=== PATIENT | female | born 1935 | race Caucasian/White ===

== ENCOUNTER 2020-01-21 08:09 | Emergency (ER) | payer MEDICARE, MEDICAID ==
[~2020-01-21 08:09] MED LIST: ADLT ASA LOW81 MG PO; AMLODIPINE10 MG PO; AMOX/K CLAV500 MG PO; CIPROFLOXACIN250 MG PO; METOPROL TAR25 MG PO; METOPROL TAR50 MG PO; METOPROLOL TART50 MG PO; MOBIC7.5 MG/5 M PO; NITROSTAT0.4 MG SL; PLAVIX75 MG PO; PRAVASTATIN20 MG PO; XALATAN0.005 %; XALATAN0.005 % OU
[2020-01-21 09:33] LABS: HEMATOCRIT 31.5 % (37.0-47.0); HEMOGLOBIN 10.2 g/dl (12.0-16.0); IMMATURE GRANULOCYTES 0.5 % (0.0-5.0); MEAN CELL VOLUME 87.5 fL CALC (80.0-100.0); MEAN CORPUSCULAR HGB 28.3 pG CALC (26.0-32.0); MEAN CORPUSCULAR HGB CONC 32.4 g/dL CAL (32.0-36.0); NEUT# 3.88 thou/uL (2.00-7.15); RED BLOOD COUNT 3.6 mill/uL (4.20-5.60); RED CELL DISTRI WIDTH 13.3 % (11.5-15.5)
[2020-01-21 10:04] LABS: INTERNATIONAL NORMALIZED RATIO 0.9 RATIO (0.7-1.3); PROTHROMBIN TIME 9.8 SECONDS (9.0-12.5)
[2020-01-21 10:23] LABS: ALBUMIN 3.9 g/dL (3.2-5.0); BILIRUBIN, TOTAL 0.4 mg/dL (0.0-1.4); CREATININE 1.4 mg/dL (0.5-1.0); POTASSIUM 3.8 mmol/l (3.5-5.1); TOTAL PROTEIN 7.9 g/dL (6.3-8.2)
[2020-01-21 12:20] VITALS: BP 164/72
== END 2020-01-21 12:20 | disposition home or self-care (01) ==
LOC: ED 08:09
PROVIDERS: Family Medicine
DX: N93.9 Abnormal uterine and vaginal bleeding, unspecified (principal); N81.4 Uterovaginal prolapse, unspecified; E11.9 Type 2 diabetes mellitus without complications; F03.90 Unspecified dementia, unspecified severity, without behavioral disturbance, psychotic disturbance, mood disturbance, and anxiety

== ENCOUNTER 2021-05-11 08:57 | Emergency (ER) | payer MEDICARE, MEDICAID ==
[~2021-05-11] VITALS: Ht 170.2 cm; Wt 61.4 kg
[2021-05-11 09:39] LABS: IMMATURE GRANULOCYTES 1.5 % (0.0-5.0); MEAN CELL VOLUME 85.8 fL CALC (80.0-100.0); MEAN CORPUSCULAR HGB 28.1 pG CALC (26.0-32.0); MEAN CORPUSCULAR HGB CONC 32.8 g/dL CAL (32.0-36.0); NEUT# 19.64 thou/uL (2.00-7.15); RED BLOOD COUNT 5.01 mill/uL (4.20-5.60); RED CELL DISTRI WIDTH 14.3 % (11.5-15.5)
[2021-05-11 09:41] LABS: HEMOGLOBIN 14.1 g/dl (12.0-16.0)
[2021-05-11 10:09] LABS: ACT PARTIAL THROMBO TIME 24.8 SECONDS (20.0-32.5); PROTHROMBIN TIME 10.7 SECONDS (9.0-12.5)
[2021-05-11 10:10] LABS: BILIRUBIN, TOTAL 0.9 mg/dL (0.0-1.4); CREATININE 1.7 mg/dL (0.5-1.0); MAGNESIUM 2.5 mg/dL (1.6-2.3); POTASSIUM 3.8 mmol/l (3.5-5.1); TOTAL PROTEIN 8.6 g/dL (6.3-8.2)
[2021-05-11] MEDS ORDERED: PRAVASTATIN20 MG PO (10:41)
[2021-05-11] MEDS ORDERED: PROTONIX40 M2 PO (10:41)
[2021-05-11] MEDS ORDERED: DONEPEZIL HCL10 M1 PO (10:44)
[2021-05-11] MEDS ORDERED: SERTRALINE50 MG PO (10:44)
[2021-05-11 11:03] LABS: URINE BILIRUBIN - DIPSTICK SMALL (NEGATIVE); URINE BLOOD DIPSTICK SMALL (NEGATIVE); URINE GLUCOSE - DIPSTICK NEGATIVE (NEGATIVE); URINE KETONE TRACE mg/dL (NEGATIVE); URINE PROTEIN - DIPSTICK 100 mg/dL (NEG-TRACE); URINE UROBILINOGEN - DIPSTICK 0.2 E.U./dL (0.2)
[2021-05-11 11:04] LABS: URINE COLOR DK. YELLOW; URINE LEUK ESTERASE MODERATE (NEGATIVE); URINE NITRITE - DIPSTICK NEGATIVE (Negative)
[2021-05-11 11:05] LABS: URINE BACTERIA FEW hpf; URINE EPITHELIAL CELLS MODERATE EPI/hpf (0-FEW)
[2021-05-11 11:52] VITALS: BP 131/60
== END 2021-05-11 11:53 | disposition short-term general hospital (02) ==
LOC: ED 08:57
PROVIDERS: Emergency Medicine
DX: A41.89 Other specified sepsis (principal); U07.1 COVID-19; F03.90 Unspecified dementia, unspecified severity, without behavioral disturbance, psychotic disturbance, mood disturbance, and anxiety; R79.89 Other specified abnormal findings of blood chemistry; R82.71 Bacteriuria

== ENCOUNTER 2021-06-26 16:32 | Emergency (ER) | payer MEDICARE, OTHER ==
[~2021-06-26] VITALS: Ht 170.2 cm; Wt 74.0 kg
[~2021-06-26 16:32] MED LIST changes: +DONEPEZIL HCL10 M1 PO; +PROTONIX40 M2 PO; +SERTRALINE50 MG PO
[2021-06-26 17:25] LABS: URINE BILIRUBIN - DIPSTICK NEGATIVE (NEGATIVE); URINE BLOOD DIPSTICK SMALL (NEGATIVE); URINE COLOR YELLOW; URINE GLUCOSE - DIPSTICK NEGATIVE (NEGATIVE); URINE KETONE NEGATIVE (NEGATIVE); URINE PH 8.5 (4.5-8.0); URINE PROTEIN - DIPSTICK NEGATIVE (NEG-TRACE); URINE SPECIFIC GRAVITY 1.025; URINE UROBILINOGEN - DIPSTICK 0.2 E.U./dL (0.2)
[2021-06-26 17:27] LABS: URINE LEUK ESTERASE MODERATE (NEGATIVE); URINE NITRITE - DIPSTICK POSITIVE (Negative)
[2021-06-26 17:32] LABS: URINE BACTERIA MODERATE hpf; URINE SQUAMOUS EPITHELIAL CELL MODERATE EPI/hpf (0-FEW); URINE WBC 20-50 WBC/hpf (0-5)
[2021-06-26 17:53] LABS: IMMATURE GRANULOCYTES 0.1 % (0.0-5.0); MEAN CORPUSCULAR HGB 28.2 pG CALC (26.0-32.0); MEAN CORPUSCULAR HGB CONC 30.9 g/dL CAL (32.0-36.0); NEUT# 7.62 thou/uL (2.00-7.15); RED BLOOD COUNT 3.97 mill/uL (4.20-5.60)
[2021-06-26 17:55] LABS: HEMATOCRIT 36.2 % (37.0-47.0); HEMOGLOBIN 11.2 g/dl (12.0-16.0); MEAN CELL VOLUME 91.2 fL CALC (80.0-100.0)
[2021-06-26 18:09] LABS: ALBUMIN 3.9 g/dL (3.2-5.0); BILIRUBIN, TOTAL 0.7 mg/dL (0.0-1.4); CREATININE 1.2 mg/dL (0.5-1.0); POTASSIUM 4.3 mmol/l (3.5-5.1); TOTAL PROTEIN 8.2 g/dL (6.3-8.2)
[2021-06-26] MEDS ORDERED: ZOFRAN4 MG/TAB PO (19:12)
[2021-06-26 19:15] VITALS: BP 121/69
== END 2021-06-26 19:15 | disposition home or self-care (01) ==
LOC: ED 16:32
PROVIDERS: Family Medicine
DX: R10.13 Epigastric pain (principal); I10 Essential (primary) hypertension; Z96.89 Presence of other specified functional implants
CPT/HCPCS: Q9967

== ENCOUNTER 2022-08-17 19:22 | Observation (INO) | payer MEDICARE, MEDICAID ==
[~2022-08-17] VITALS: Ht 170.2 cm; Wt 58.7 kg
[2022-08-17] VITALS (8 sets, daily range): BP systolic 58–155; BP diastolic 33–119
[~2022-08-17 19:22] MED LIST changes: +ZOFRAN4 MG/TAB PO
[2022-08-17 19:58] LABS: BASO% 0.5 % (0-3); HEMATOCRIT 32.6 % (37.0-47.0); HEMOGLOBIN 10.8 g/dl (12.0-16.0); IMMATURE GRANULOCYTES 0.2 % (0.0-5.0); LYMPH% 16.5 % (15-41); MEAN CELL VOLUME 91.3 fL CALC (80.0-100.0); MEAN CORPUSCULAR HGB 30.3 pG CALC (26.0-32.0); MEAN CORPUSCULAR HGB CONC 33.1 g/dL CAL (32.0-36.0); MONO% 7.2 % (2-13); NEUT# 4.68 thou/uL (2.00-7.15); NEUT% 73.6 % (42-76); RED BLOOD COUNT 3.57 mill/uL (4.20-5.60); RED CELL DISTRI WIDTH 13.9 % (11.5-15.5)
[2022-08-17 20:08] LABS: ALBUMIN 4.3 g/dL (3.2-5.0); CREATININE 1.3 mg/dL (0.5-1.0); POTASSIUM 3.6 mmol/l (3.5-5.1); TOTAL PROTEIN 8.3 g/dL (6.3-8.2)
[2022-08-17 20:09] LABS: BILIRUBIN, TOTAL 0.2 mg/dL (0.0-1.4)
[2022-08-17 21:11] LABS: URINE BILIRUBIN - DIPSTICK NEGATIVE (NEGATIVE); URINE BLOOD DIPSTICK TRACE-INTACT (NEGATIVE); URINE COLOR YELLOW; URINE GLUCOSE - DIPSTICK NEGATIVE (NEGATIVE); URINE KETONE NEGATIVE (NEGATIVE); URINE LEUK ESTERASE TRACE (NEGATIVE); URINE PROTEIN - DIPSTICK NEGATIVE (NEG-TRACE); URINE SPECIFIC GRAVITY 1.025; URINE UROBILINOGEN - DIPSTICK 0.2 E.U./dL (0.2)
[2022-08-17 21:16] LABS: URINE NITRITE - DIPSTICK POSITIVE (Negative)
[2022-08-17 21:22] LABS: URINE BACTERIA MANY hpf; URINE SQUAMOUS EPITHELIAL CELL FEW EPI/hpf (0-FEW)
[2022-08-18] VITALS (10 sets, daily range): BP systolic 125–170; BP diastolic 68–81
[2022-08-19] VITALS: BP 138/70
[2022-08-19 04:00] VITALS: BP 159/73
[2022-08-19 04:13] VITALS: BP 159/73
[2022-08-19 05:35] LABS: BASO% 0.8 % (0-3); EOS% 3.4 % (0-8); HEMATOCRIT 31.4 % (37.0-47.0); HEMOGLOBIN 10.5 g/dl (12.0-16.0); IMMATURE GRANULOCYTES 0.2 % (0.0-5.0); LYMPH% 16.4 % (15-41); MEAN CELL VOLUME 91.3 fL CALC (80.0-100.0); MEAN CORPUSCULAR HGB 30.5 pG CALC (26.0-32.0); MEAN CORPUSCULAR HGB CONC 33.4 g/dL CAL (32.0-36.0); MONO% 9.9 % (2-13); NEUT# 3.63 thou/uL (2.00-7.15); NEUT% 69.3 % (42-76); RED BLOOD COUNT 3.44 mill/uL (4.20-5.60); RED CELL DISTRI WIDTH 13.9 % (11.5-15.5)
[2022-08-19 05:56] LABS: ALBUMIN 3.5 g/dL (3.2-5.0); CREATININE 1.2 mg/dL (0.5-1.0); POTASSIUM 4.2 mmol/l (3.5-5.1)
[2022-08-19 05:58] LABS: BILIRUBIN, TOTAL 0.4 mg/dL (0.0-1.4)
[2022-08-19 06:56] VITALS: BP 141/73
[2022-08-19 14:42] VITALS: BP 138/70
== END 2022-08-19 14:53 ==
LOC: ED 19:22 → ED-I 20:20 → ED 20:35 → MS2 20:36
PROVIDERS: Family Medicine; Nurse Practitioner Family; ADMIT Internal Medicine; ATTEND Internal Medicine
PROC: 0T9B70Z Drainage of Bladder with Drainage Device, Via Natural or Artificial Opening (ICD-10-PCS; 2022-08-17)
PROC: 0SSBXZZ Reposition Left Hip Joint, External Approach (ICD-10-PCS; principal; 2022-08-18)
DX: S73.005A Unspecified dislocation of left hip, initial encounter (principal); I10 Essential (primary) hypertension; E11.9 Type 2 diabetes mellitus without complications; E78.00 Pure hypercholesterolemia, unspecified; F03.918 Unspecified dementia, unspecified severity, with other behavioral disturbance; Z91.81 History of falling; W01.0XXA Fall on same level from slipping, tripping and stumbling without subsequent striking against object, initial encounter
CPT/HCPCS: J1650

== ENCOUNTER 2022-08-21 14:11 | Emergency (ER) | payer MEDICARE, MEDICAID ==
[2022-08-21] VITALS (51 sets, daily range): BP systolic 109–191; BP diastolic 53–130
[~2022-08-21] VITALS: Ht 170.2 cm; Wt 63.5 kg
[2022-08-21 14:43] LABS: BASO% 0.6 % (0-3); EOS% 3.4 % (0-8); HEMATOCRIT 32.3 % (37.0-47.0); HEMOGLOBIN 10.6 g/dl (12.0-16.0); IMMATURE GRANULOCYTES 0.2 % (0.0-5.0); MEAN CELL VOLUME 91.2 fL CALC (80.0-100.0); MEAN CORPUSCULAR HGB 29.9 pG CALC (26.0-32.0); MEAN CORPUSCULAR HGB CONC 32.8 g/dL CAL (32.0-36.0); MONO% 8.1 % (2-13); NEUT# 3.36 thou/uL (2.00-7.15); NEUT% 67.7 % (42-76); RED BLOOD COUNT 3.54 mill/uL (4.20-5.60); RED CELL DISTRI WIDTH 13.8 % (11.5-15.5)
[2022-08-21 14:58] LABS: ALBUMIN 3.8 g/dL (3.2-5.0); BILIRUBIN, TOTAL 0.3 mg/dL (0.0-1.4); CREATININE 1.3 mg/dL (0.5-1.0); TOTAL PROTEIN 7.7 g/dL (6.3-8.2)
[2022-08-22] VITALS (67 sets, daily range): BP systolic 87–160; BP diastolic 39–79
== END 2022-08-22 09:13 | disposition home or self-care (01) ==
LOC: ED 14:11
PROVIDERS: Family Medicine
PROC: 0SWBXJZ Revision of Synthetic Substitute in Left Hip Joint, External Approach (ICD-10-PCS; principal; 2022-08-21)
DX: T84.021A Dislocation of internal left hip prosthesis, initial encounter (principal); I10 Essential (primary) hypertension; E11.9 Type 2 diabetes mellitus without complications; E78.00 Pure hypercholesterolemia, unspecified; F03.90 Unspecified dementia, unspecified severity, without behavioral disturbance, psychotic disturbance, mood disturbance, and anxiety; Y83.1 Surgical operation with implant of artificial internal device as the cause of abnormal reaction of the patient, or of later complication, without mention of misadventure at the time of the procedure; Y92.009 Unspecified place in unspecified non-institutional (private) residence as the place of occurrence of the external cause

== ENCOUNTER 2022-08-27 21:57 | Emergency (ER) | payer MEDICARE, MEDICAID ==
[~2022-08-27] VITALS: Ht 162.6 cm; Wt 68.0 kg
[2022-08-28] VITALS (35 sets, daily range): BP systolic 92–201; BP diastolic 39–156
[2022-08-28 00:28] LABS: BASO% 0.8 % (0-3); EOS% 3.7 % (0-8); HEMATOCRIT 29.6 % (37.0-47.0); HEMOGLOBIN 9.6 g/dl (12.0-16.0); IMMATURE GRANULOCYTES 0.2 % (0.0-5.0); LYMPH% 22.5 % (15-41); MEAN CORPUSCULAR HGB 30.5 pG CALC (26.0-32.0); MEAN CORPUSCULAR HGB CONC 32.4 g/dL CAL (32.0-36.0); MONO% 7.9 % (2-13); NEUT% 64.9 % (42-76); RED BLOOD COUNT 3.15 mill/uL (4.20-5.60); RED CELL DISTRI WIDTH 13.9 % (11.5-15.5)
[2022-08-28 00:45] LABS: ALBUMIN 3.6 g/dL (3.2-5.0); BILIRUBIN, TOTAL 0.3 mg/dL (0.0-1.4); CREATININE 1.3 mg/dL (0.5-1.0); POTASSIUM 4.2 mmol/l (3.5-5.1); TOTAL PROTEIN 7.3 g/dL (6.3-8.2)
[2022-08-28] MEDS ORDERED: LOPRESSOR25 M1 PO (09:02)
[2022-08-28] MEDS ORDERED: LATANOPROST0.005 % OU (09:03)
== END 2022-08-28 09:50 | disposition short-term general hospital (02) ==
LOC: ED 21:57
PROVIDERS: Family Medicine
PROC: 0SWBXJZ Revision of Synthetic Substitute in Left Hip Joint, External Approach (ICD-10-PCS; principal; 2022-08-28)
DX: T84.021A Dislocation of internal left hip prosthesis, initial encounter (principal); U07.1 COVID-19; I10 Essential (primary) hypertension; E11.9 Type 2 diabetes mellitus without complications; E78.00 Pure hypercholesterolemia, unspecified; F03.90 Unspecified dementia, unspecified severity, without behavioral disturbance, psychotic disturbance, mood disturbance, and anxiety; Y83.1 Surgical operation with implant of artificial internal device as the cause of abnormal reaction of the patient, or of later complication, without mention of misadventure at the time of the procedure; Y92.003 Bedroom of unspecified non-institutional (private) residence as the place of occurrence of the external cause; Z96.642 Presence of left artificial hip joint

== ENCOUNTER 2022-11-05 13:27 | Emergency (ER) | payer MEDICARE, MEDICAID ==
[~2022-11-05] VITALS: Ht 162.6 cm; Wt 56.0 kg
[~2022-11-05 13:27] MED LIST changes: +LATANOPROST0.005 % OU; +LOPRESSOR25 M1 PO
[2022-11-05 13:35] VITALS: BP 112/63
[2022-11-05 13:40] VITALS: BP 116/48
[2022-11-05 13:59] LABS: BASO% 1.2 % (0-3); EOS% 8.2 % (0-8); HEMATOCRIT 31.4 % (37.0-47.0); HEMOGLOBIN 9.8 g/dl (12.0-16.0); LYMPH% 16.3 % (15-41); MEAN CORPUSCULAR HGB 28.1 pG CALC (26.0-32.0); MEAN CORPUSCULAR HGB CONC 31.2 g/dL CAL (32.0-36.0); MONO% 6.7 % (2-13); NEUT# 4.43 thou/uL (2.00-7.15); NEUT% 67.6 % (42-76); RED BLOOD COUNT 3.49 mill/uL (4.20-5.60); RED CELL DISTRI WIDTH 12.9 % (11.5-15.5)
[2022-11-05 14:00] VITALS: BP 119/37
[2022-11-05 14:10] LABS: ALBUMIN 3.4 g/dL (3.2-5.0); BILIRUBIN, TOTAL 0.2 mg/dL (0.02-1.3); CREATININE 1.3 mg/dL (0.5-1.0); POTASSIUM 3.9 mmol/l (3.5-5.1); TOTAL PROTEIN 7.3 g/dL (6.3-8.2)
[2022-11-05 14:41] VITALS: BP 139/54
[2022-11-05 15:00] VITALS: BP 144/63
[2022-11-05 18:38] VITALS: BP 144/63
== END 2022-11-05 18:48 | disposition home or self-care (01) ==
LOC: ED 13:27
PROVIDERS: Family Medicine
DX: R55 Syncope and collapse (principal); I10 Essential (primary) hypertension; E11.9 Type 2 diabetes mellitus without complications; F03.90 Unspecified dementia, unspecified severity, without behavioral disturbance, psychotic disturbance, mood disturbance, and anxiety; E78.00 Pure hypercholesterolemia, unspecified

== ENCOUNTER 2022-12-03 18:24 | Emergency (ER) | payer MEDICARE, MEDICAID ==
[2022-12-03] VITALS (14 sets, daily range): BP systolic 125–165; BP diastolic 54–129
[~2022-12-03] VITALS: Ht 162.6 cm; Wt 54.0 kg
[2022-12-03] MEDS ORDERED: PRAVASTATIN SOD20 MG PO (19:03)
[2022-12-03] MEDS ORDERED: BUSPIRONE5 MG PO (19:04)
[2022-12-04] VITALS (76 sets, daily range): BP systolic 77–164; BP diastolic 36–80
[2022-12-04 00:44] LABS: CREATININE 1.4 mg/dL (0.5-1.0); POTASSIUM 4.2 mmol/l (3.5-5.1); TOTAL PROTEIN 8.5 g/dL (6.3-8.2)
[2022-12-04 00:47] LABS: BASO% 0.8 % (0-3); EOS% 7.7 % (0-8); HEMATOCRIT 34.3 % (37.0-47.0); HEMOGLOBIN 10.8 g/dl (12.0-16.0); IMMATURE GRANULOCYTES 0.7 % (0.0-5.0); MEAN CELL VOLUME 87.3 fL CALC (80.0-100.0); MEAN CORPUSCULAR HGB 27.5 pG CALC (26.0-32.0); MEAN CORPUSCULAR HGB CONC 31.5 g/dL CAL (32.0-36.0); MONO% 8.9 % (2-13); NEUT# 3.51 thou/uL (2.00-7.15); NEUT% 58.9 % (42-76); RED BLOOD COUNT 3.93 mill/uL (4.20-5.60); RED CELL DISTRI WIDTH 13.6 % (11.5-15.5)
[2022-12-04 00:59] LABS: ALBUMIN 4.1 g/dL (3.2-5.0); BILIRUBIN, TOTAL 0.4 mg/dL (0.02-1.3)
== END 2022-12-04 07:32 | disposition home or self-care (01) ==
LOC: ED 18:24
PROVIDERS: Emergency Medicine
PROC: 0SWSXJZ Revision of Synthetic Substitute in Left Hip Joint, Femoral Surface, External Approach (ICD-10-PCS; principal; 2022-12-04)
DX: T84.021A Dislocation of internal left hip prosthesis, initial encounter (principal); I10 Essential (primary) hypertension; F03.90 Unspecified dementia, unspecified severity, without behavioral disturbance, psychotic disturbance, mood disturbance, and anxiety; E11.9 Type 2 diabetes mellitus without complications; E78.00 Pure hypercholesterolemia, unspecified; Y83.1 Surgical operation with implant of artificial internal device as the cause of abnormal reaction of the patient, or of later complication, without mention of misadventure at the time of the procedure; Z96.642 Presence of left artificial hip joint; Z20.822 Contact with and (suspected) exposure to COVID-19

== ENCOUNTER 2022-12-05 06:54 | Emergency (ER) | payer MEDICARE, MEDICAID ==
[~2022-12-05] VITALS: Ht 162.6 cm; Wt 60.0 kg
[2022-12-05] VITALS (8 sets, daily range): BP systolic 126–148; BP diastolic 53–69
[~2022-12-05 06:54] MED LIST changes: +BUSPIRONE5 MG PO; +PRAVASTATIN SOD20 MG PO
== END 2022-12-05 09:51 | disposition short-term general hospital (02) ==
LOC: ED 06:54
DX: T84.021A Dislocation of internal left hip prosthesis, initial encounter (principal); Y83.1 Surgical operation with implant of artificial internal device as the cause of abnormal reaction of the patient, or of later complication, without mention of misadventure at the time of the procedure; I10 Essential (primary) hypertension; E11.9 Type 2 diabetes mellitus without complications; E78.00 Pure hypercholesterolemia, unspecified; F03.90 Unspecified dementia, unspecified severity, without behavioral disturbance, psychotic disturbance, mood disturbance, and anxiety

== ENCOUNTER 2023-01-24 19:21 | Emergency (ER) | payer MEDICARE, MEDICAID ==
[~2023-01-24] VITALS: Ht 162.6 cm; Wt 40.0 kg
[2023-01-24] VITALS (18 sets, daily range): BP systolic 125–160; BP diastolic 60–73
[2023-01-24 20:57] LABS: BASO% 1.2 % (0-3); EOS% 5.2 % (0-8); HEMATOCRIT 33.5 % (37.0-47.0); HEMOGLOBIN 10.4 g/dl (12.0-16.0); LYMPH% 31.2 % (15-41); MEAN CELL VOLUME 90.8 fL CALC (80.0-100.0); MEAN CORPUSCULAR HGB 28.2 pG CALC (26.0-32.0); MONO% 9.5 % (2-13); NEUT# 2.73 thou/uL (2.00-7.15); NEUT% 52.9 % (42-76); RED BLOOD COUNT 3.69 mill/uL (4.20-5.60); RED CELL DISTRI WIDTH 15.1 % (11.5-15.5)
[2023-01-24 21:10] LABS: ALBUMIN 4.1 g/dL (3.2-5.0); BILIRUBIN, TOTAL 0.3 mg/dL (0.02-1.3); CREATININE 1.2 mg/dL (0.5-1.0); POTASSIUM 3.8 mmol/l (3.5-5.1); TOTAL PROTEIN 8.1 g/dL (6.3-8.2)
[2023-01-24 21:12] LABS: PROTHROMBIN TIME 10.1 SECONDS (9.0-12.5)
[2023-01-25] VITALS (7 sets, daily range): BP systolic 131–150; BP diastolic 57–76
== END 2023-01-25 01:33 | disposition short-term general hospital (02) ==
LOC: ED 19:21
PROVIDERS: Nurse Practitioner
DX: T84.021A Dislocation of internal left hip prosthesis, initial encounter (principal); I10 Essential (primary) hypertension; E11.9 Type 2 diabetes mellitus without complications; E78.00 Pure hypercholesterolemia, unspecified; F03.90 Unspecified dementia, unspecified severity, without behavioral disturbance, psychotic disturbance, mood disturbance, and anxiety; Y83.1 Surgical operation with implant of artificial internal device as the cause of abnormal reaction of the patient, or of later complication, without mention of misadventure at the time of the procedure

== ENCOUNTER 2023-02-01 16:40 | Observation (INO) | payer MEDICARE, MEDICAID ==
[~2023-02-01] VITALS: Ht 162.6 cm; Wt 54.0 kg
[2023-02-01] VITALS (21 sets, daily range): BP systolic 98–155; BP diastolic 43–81
[2023-02-01 17:00] LABS: EOS% 3.5 % (0-8); HEMATOCRIT 31.1 % (37.0-47.0); HEMOGLOBIN 9.7 g/dl (12.0-16.0); LYMPH% 35.8 % (15-41); MEAN CELL VOLUME 89.4 fL CALC (80.0-100.0); MEAN CORPUSCULAR HGB 27.9 pG CALC (26.0-32.0); MEAN CORPUSCULAR HGB CONC 31.2 g/dL CAL (32.0-36.0); MONO% 7.5 % (2-13); NEUT# 2.65 thou/uL (2.00-7.15); NEUT% 52.2 % (42-76); RED BLOOD COUNT 3.48 mill/uL (4.20-5.60); RED CELL DISTRI WIDTH 15.1 % (11.5-15.5)
[2023-02-01 17:18] LABS: BILIRUBIN, TOTAL 0.3 mg/dL (0.02-1.3); CREATININE 1.2 mg/dL (0.5-1.0); POTASSIUM 3.9 mmol/l (3.5-5.1); TOTAL PROTEIN 7.7 g/dL (6.3-8.2)
[2023-02-02] VITALS (53 sets, daily range): BP systolic 106–158; BP diastolic 44–92
[2023-02-03] VITALS (7 sets, daily range): BP systolic 112–149; BP diastolic 53–68
[2023-02-03 05:05] LABS: BASO% 0.7 % (0-3); EOS% 3.1 % (0-8); HEMATOCRIT 31.6 % (37.0-47.0); HEMOGLOBIN 10.2 g/dl (12.0-16.0); IMMATURE GRANULOCYTES 0.7 % (0.0-5.0); LYMPH% 22.4 % (15-41); MEAN CORPUSCULAR HGB 28.7 pG CALC (26.0-32.0); MEAN CORPUSCULAR HGB CONC 32.3 g/dL CAL (32.0-36.0); NEUT# 3.76 thou/uL (2.00-7.15); NEUT% 65.1 % (42-76); RED BLOOD COUNT 3.55 mill/uL (4.20-5.60); RED CELL DISTRI WIDTH 14.6 % (11.5-15.5)
[2023-02-03 05:15] LABS: ALBUMIN 3.9 g/dL (3.2-5.0); ALKALINE PHOSPHATASE 80 u/l (38-126); ANION GAP 11 (6-22 (CALC)); BILIRUBIN, TOTAL 0.4 mg/dL (0.02-1.3); BUN 17 mg/dL (8-23); BUN/CREATININE RATIO 16 (12-20 (CALC)); CARBON DIOXIDE 25 mmol/l (22-30); CHLORIDE 103 mmol/l (95-108); GFR FOR AFR.AMER. > 60 ML/MIN (>=60 (CALC)); GFR OTHER RACES 53 ML/MIN (>=60 (CALC)); POTASSIUM 3.8 mmol/l (3.5-5.1); SGOT/AST 24 u/l (9-36); SODIUM 135 mmol/l (137-146); TOTAL PROTEIN 7.5 g/dL (6.3-8.2)
[2023-02-04] VITALS (11 sets, daily range): BP systolic 121–131; BP diastolic 39–57
[2023-02-05 03:56] VITALS: BP 131/57
[2023-02-05 05:05] VITALS: BP 131/57
[2023-02-05 07:17] VITALS: BP 137/65
[2023-02-05 10:27] VITALS: BP 125/52
[2023-02-05 15:25] VITALS: BP 115/47
[2023-02-05 20:49] VITALS: BP 139/54
[2023-02-06 00:09] VITALS: BP 124/60
[2023-02-06 04:04] VITALS: BP 117/54
[2023-02-06 05:14] LABS: BASO% 0.9 % (0-3); EOS% 4.5 % (0-8); HEMATOCRIT 31.1 % (37.0-47.0); HEMOGLOBIN 9.8 g/dl (12.0-16.0); IMMATURE GRANULOCYTES 0.2 % (0.0-5.0); LYMPH% 25.2 % (15-41); MEAN CELL VOLUME 90.1 fL CALC (80.0-100.0); MEAN CORPUSCULAR HGB 28.4 pG CALC (26.0-32.0); MEAN CORPUSCULAR HGB CONC 31.5 g/dL CAL (32.0-36.0); MONO% 8.6 % (2-13); NEUT# 3.39 thou/uL (2.00-7.15); NEUT% 60.6 % (42-76); RED BLOOD COUNT 3.45 mill/uL (4.20-5.60); RED CELL DISTRI WIDTH 14.7 % (11.5-15.5)
[2023-02-06 05:27] LABS: CREATININE 1.3 mg/dL (0.5-1.0); MAGNESIUM 2.3 mg/dL (1.6-2.3); POTASSIUM 4.1 mmol/l (3.5-5.1)
[2023-02-06 07:09] VITALS: BP 140/65
[2023-02-06 11:22] VITALS: BP 125/49
[2023-02-06 14:54] VITALS: BP 106/50
[2023-02-06 19:47] VITALS: BP 140/55
[2023-02-07 00:04] VITALS: BP 139/46
[2023-02-07 04:23] VITALS: BP 155/74
[2023-02-07 06:44] VITALS: BP 153/68
[2023-02-07 09:10] VITALS: BP 153/68
== END 2023-02-07 10:37 | disposition home health service (06) ==
LOC: ED 16:40 → ED-I 02-02 09:55 → ED 02-02 10:24 → ICU 02-02 10:25 → MS2 02-02 10:25 → ICU 02-02 10:25 → MS2 02-04 14:59
PROVIDERS: Internal Medicine; Nurse Practitioner; Nurse Practitioner Family; ADMIT Internal Medicine; ATTEND Internal Medicine
PROC: 0SWBXJZ Revision of Synthetic Substitute in Left Hip Joint, External Approach (ICD-10-PCS; principal; 2023-02-01)
DX: T84.021A Dislocation of internal left hip prosthesis, initial encounter (principal); R62.7 Adult failure to thrive; I10 Essential (primary) hypertension; E11.9 Type 2 diabetes mellitus without complications; E78.00 Pure hypercholesterolemia, unspecified; F03.90 Unspecified dementia, unspecified severity, without behavioral disturbance, psychotic disturbance, mood disturbance, and anxiety; Y83.1 Surgical operation with implant of artificial internal device as the cause of abnormal reaction of the patient, or of later complication, without mention of misadventure at the time of the procedure; Z96.642 Presence of left artificial hip joint; Z20.822 Contact with and (suspected) exposure to COVID-19
CPT/HCPCS: J1650

== ENCOUNTER 2023-04-27 10:53 | Emergency (ER) | payer MEDICARE, OTHER ==
[2023-04-27] VITALS (25 sets, daily range): BP systolic 111–165; BP diastolic 51–74
[~2023-04-27] VITALS: Ht 162.6 cm; Wt 54.4 kg
[2023-04-27 11:38] LABS: BASO% 0.8 % (0-3); HEMATOCRIT 36.2 % (37.0-47.0); HEMOGLOBIN 11.1 g/dl (12.0-16.0); IMMATURE GRANULOCYTES 0.5 % (0.0-5.0); LYMPH% 12.6 % (15-41); MEAN CELL VOLUME 88.7 fL CALC (80.0-100.0); MEAN CORPUSCULAR HGB 27.2 pG CALC (26.0-32.0); MEAN CORPUSCULAR HGB CONC 30.7 g/dL CAL (32.0-36.0); MONO% 5.9 % (2-13); NEUT# 7.26 thou/uL (2.00-7.15); NEUT% 78.2 % (42-76); RED BLOOD COUNT 4.08 mill/uL (4.20-5.60); RED CELL DISTRI WIDTH 14.6 % (11.5-15.5)
[2023-04-27 11:51] LABS: ALBUMIN 3.2 g/dL (3.2-5.0); CREATININE 1.7 mg/dL (0.5-1.0); TOTAL PROTEIN 8.3 g/dL (6.3-8.2)
[2023-04-27 11:55] LABS: BILIRUBIN, TOTAL 0.7 mg/dL (0.02-1.3)
[2023-04-27 17:32] LABS: URINE BILIRUBIN - DIPSTICK Negative (NEGATIVE); URINE BLOOD DIPSTICK Negative (NEGATIVE); URINE GLUCOSE - DIPSTICK Negative (NEGATIVE); URINE KETONE Negative (NEGATIVE); URINE LEUK ESTERASE Negative (NEGATIVE); URINE NITRITE - DIPSTICK Negative (Negative); URINE PH 5.5 (4.5-8.0); URINE PROTEIN - DIPSTICK Trace mg/dL (NEG-TRACE); URINE SPECIFIC GRAVITY 1.015
[2023-04-27 17:33] LABS: URINE COLOR Yellow
== END 2023-04-27 20:09 | disposition home or self-care (01) ==
LOC: ED 10:53
PROVIDERS: Family Medicine
DX: E86.0 Dehydration (principal); I10 Essential (primary) hypertension; E11.9 Type 2 diabetes mellitus without complications; E78.00 Pure hypercholesterolemia, unspecified; F03.90 Unspecified dementia, unspecified severity, without behavioral disturbance, psychotic disturbance, mood disturbance, and anxiety

== ENCOUNTER 2023-05-05 03:34 | Emergency (ER) | payer MEDICARE, OTHER ==
[2023-05-05] VITALS (8 sets, daily range): BP systolic 124–161; BP diastolic 55–91
[~2023-05-05] VITALS: Ht 162.6 cm; Wt 65.0 kg
[2023-05-05] MEDS ORDERED: ATORVASTATIN CA10 MG PO (04:12)
[2023-05-05] MEDS ORDERED: MIRALAX17 GM PO (04:13)
[2023-05-05] MEDS ORDERED: COLACE100 MG PO (04:15)
[2023-05-05 05:02] LABS: BASO% 0.3 % (0-3); EOS% 0.9 % (0-8); IMMATURE GRANULOCYTES 1.3 % (0.0-5.0); LYMPH% 10.3 % (15-41); MEAN CELL VOLUME 84.9 fL CALC (80.0-100.0); MEAN CORPUSCULAR HGB 27.4 pG CALC (26.0-32.0); MEAN CORPUSCULAR HGB CONC 32.3 g/dL CAL (32.0-36.0); MONO% 4.5 % (2-13); NEUT# 7.39 thou/uL (2.00-7.15); NEUT% 82.7 % (42-76); RED BLOOD COUNT 3.65 mill/uL (4.20-5.60); RED CELL DISTRI WIDTH 14.6 % (11.5-15.5)
[2023-05-05 05:12] LABS: ALBUMIN 3.4 g/dL (3.2-5.0); ALKALINE PHOSPHATASE 116 u/l (38-126); ANION GAP 10 (6-22 (CALC)); BILIRUBIN, TOTAL 0.6 mg/dL (0.02-1.3); BUN 20 mg/dL (8-23); BUN/CREATININE RATIO 13 (12-20 (CALC)); CARBON DIOXIDE 24 mmol/l (22-30); CHLORIDE 99 mmol/l (95-108); CREATININE 1.5 mg/dL (0.5-1.0); GFR FOR AFR.AMER. 40 ML/MIN (>=60 (CALC)); GFR OTHER RACES 33 ML/MIN (>=60 (CALC)); SGOT/AST 33 u/l (9-36); TOTAL PROTEIN 8.2 g/dL (6.3-8.2)
[2023-05-05 05:20] LABS: SODIUM 129 mmol/l (137-146)
[2023-05-05] MEDS ORDERED: NAPROXEN500 MG PO (05:53)
[2023-05-10] MEDS ORDERED: BACTRIM DS1 TAB PO (09:33)
== END 2023-05-05 07:14 ==
LOC: ED 03:34
PROVIDERS: Emergency Medicine
DX: Z04.3 Encounter for examination and observation following other accident (principal); F03.90 Unspecified dementia, unspecified severity, without behavioral disturbance, psychotic disturbance, mood disturbance, and anxiety; I10 Essential (primary) hypertension; E11.9 Type 2 diabetes mellitus without complications; E78.00 Pure hypercholesterolemia, unspecified; Z96.642 Presence of left artificial hip joint

== ENCOUNTER 2023-09-15 09:40 | Emergency (ER) | payer MEDICARE, OTHER ==
[2023-09-15] VITALS (32 sets, daily range): BP systolic 75–121; BP diastolic 31–89
[~2023-09-15] VITALS: Ht 162.6 cm; Wt 61.0 kg
[~2023-09-15 09:40] MED LIST changes: +ATORVASTATIN CA10 MG PO; +BACTRIM DS1 TAB PO; +COLACE100 MG PO; +LEVETIRACETAM500 MG PO; +LORTAB 5/3255 MG PO; +MIRALAX17 GM PO; +NAPROXEN500 MG PO
[2023-09-15] MEDS ORDERED: ASPIRINCHW 81MG PO (09:53)
[2023-09-15] MEDS ORDERED: LOVENOX 3030 MG/0.3 SC (09:55)
[2023-09-15] MEDS ORDERED: SENNA/DSS1 TAB PO (09:56)
[2023-09-15] MEDS ORDERED: GABAPENTIN100 MG PO (09:57)
[2023-09-15] MEDS ORDERED: TIZANIDINE HCL2 MG PO (09:58)
[2023-09-15] MEDS ORDERED: ACETAMINOPHEN325 MG PO (09:59)
[2023-09-15] MEDS ORDERED: BISACODYL LAXAT10 MG PR (10:01)
[2023-09-15] MEDS ORDERED: LORTAB 1010 MG PO (10:01)
[2023-09-15] MEDS ORDERED: MIRALAX17 GM PO (10:03)
[2023-09-15] MEDS ORDERED: ZOFRAN4 MG/TAB PO (10:03)
[2023-09-15] MEDS ORDERED: MILK OF MAGNES7.75 % PO (10:03)
[2023-09-15 10:59] LABS: BASO% 0.4 % (0-3); EOS% 2.6 % (0-8); IMMATURE GRANULOCYTES 0.1 % (0.0-5.0); MEAN CORPUSCULAR HGB 28.6 pG CALC (26.0-32.0); MEAN CORPUSCULAR HGB CONC 28.9 g/dL CAL (32.0-36.0); NEUT# 5.29 thou/uL (2.00-7.15); NEUT% 67.9 % (42-76); RED BLOOD COUNT 4.3 mill/uL (4.20-5.60); RED CELL DISTRI WIDTH 17.2 % (11.5-15.5)
[2023-09-15 11:00] LABS: HEMATOCRIT 42.5 % (37.0-47.0); HEMOGLOBIN 12.3 g/dl (12.0-16.0); MEAN CELL VOLUME 98.8 fL CALC (80.0-100.0)
[2023-09-15 11:10] LABS: ALBUMIN 3.6 g/dL (3.2-5.0); POTASSIUM 4.3 mmol/l (3.5-5.1); TOTAL PROTEIN 8.7 g/dL (6.3-8.2)
[2023-09-15 11:11] LABS: ACT PARTIAL THROMBO TIME 18.8 SECONDS (20.0-32.5); PROTHROMBIN TIME 9.9 SECONDS (9.0-12.5)
[2023-09-15 12:18] LABS: CREATININE 2.5 mg/dL (0.5-1.0)
[2023-09-15 12:19] LABS: BILIRUBIN, TOTAL 0.7 mg/dL (0.02-1.3)
[2023-09-15 14:18] LABS: BILIRUBIN, TOTAL 0.6 mg/dL (0.02-1.3); CREATININE 2.1 mg/dL (0.5-1.0); POTASSIUM 3.8 mmol/l (3.5-5.1); TOTAL PROTEIN 7.1 g/dL (6.3-8.2)
[2023-09-15 14:26] LABS: ALBUMIN 2.8 g/dL (3.2-5.0)
[2023-09-15 15:28] LABS: URINE BILIRUBIN - DIPSTICK Negative (NEGATIVE); URINE BLOOD DIPSTICK Large (NEGATIVE); URINE GLUCOSE - DIPSTICK Negative (NEGATIVE); URINE KETONE Negative (NEGATIVE); URINE NITRITE - DIPSTICK Negative (Negative); URINE PH 6.5 (4.5-8.0); URINE PROTEIN - DIPSTICK 100 mg/dL (NEG-TRACE); URINE UROBILINOGEN - DIPSTICK 0.2 E.U./dL (0.2)
[2023-09-15 15:30] LABS: URINE COLOR Yellow; URINE LEUK ESTERASE Small (NEGATIVE)
[2023-09-15 15:31] LABS: URINE BACTERIA MANY hpf; URINE RENAL EPITHELIAL CELLS FEW hpf; URINE SQUAMOUS EPITHELIAL CELL FEW EPI/hpf (0-FEW); URINE WBC >100 WBC/hpf (0-5)
== END 2023-09-15 17:11 ==
LOC: ED 09:40
PROVIDERS: Emergency Medicine
PROC: 0T9B70Z Drainage of Bladder with Drainage Device, Via Natural or Artificial Opening (ICD-10-PCS; principal; 2023-09-15)
DX: E86.0 Dehydration (principal); E87.0 Hyperosmolality and hypernatremia; N19 Unspecified kidney failure; R65.10 Systemic inflammatory response syndrome (SIRS) of non-infectious origin without acute organ dysfunction; I10 Essential (primary) hypertension; E11.9 Type 2 diabetes mellitus without complications; E78.00 Pure hypercholesterolemia, unspecified; F03.90 Unspecified dementia, unspecified severity, without behavioral disturbance, psychotic disturbance, mood disturbance, and anxiety; R64 Cachexia; Z74.01 Bed confinement status; R82.71 Bacteriuria; Z20.822 Contact with and (suspected) exposure to COVID-19